=== PATIENT | female | born 1975 | race American Indian/Alaskan Native ===

== ENCOUNTER 2017-04-30 11:54 | Emergency (ER) | payer OTHER ==
[2017-04-30 12:15] VITALS: BMI 30.4
--- NOTE | 2017-04-30 13:43 | C.PDOC ---
History Of Present Illness 42F c/o right flank pain for 3 days, constant at first now comes and goes, worse w eating. feels similar to bout of pancreatitis 3 years ago, she says due to etoh. she still drinks daily, "6-pack." no etoh since pain started. denies other pmh or psh. Time Seen by Provider: 04/30/17 13:38 Chief Complaint (Nursing): Abdominal Pain Past Medical History Vital Signs: Last Vital Signs Temp 98.1 F 04/30/17 16:21 Pulse 77 04/30/17 18:05 Resp 18 04/30/17 18:05 BP 113/79 04/30/17 18:05 Pulse Ox 98 04/30/17 18:05 - Medical History PMH: HTN, Pancreatitis (2011) Family History: States: Other Other Family History: nc - Social History Hx Alcohol Use: Yes Hx Substance Use: No - Immunization History Hx Tetanus Toxoid Vaccination: No Hx Influenza Vaccination: No Hx Pneumococcal Vaccination: No Review Of Systems Except As Marked, All Systems Reviewed And Found Negative. Constitutional: Negative for: Fever, Chills, Weakness Cardiovascular: Negative for: Chest Pain Respiratory: Negative for: Cough, Shortness of Breath Gastrointestinal: Positive for: Abdominal Pain. Negative for: Nausea, Vomiting , Diarrhea Genitourinary: Negative for: Dysuria, Frequency Neurological: Negative for: Weakness, Numbness, Headache Physical Exam - Physical Exam Appears: Well, Non-toxic, No Acute Distress Skin: Warm, Dry Head: Atraumatic Eye(s): bilateral: PERRL Nose: No Epistaxis Oral Mucosa: Moist Lips: No Swelling Cardiovascular: Rhythm Regular Respiratory: No Decreased Breath Sounds, No Accessory Muscle Use, No Rales, No Rhonchi, No Stridor, No Wheezing Gastrointestinal/Abdominal: Soft, Tenderness (epigastric and RUQ), No Distention , No Guarding, No Rebound Back: No CVA Tenderness Extremity: No Swelling Neurological/Psych: Oriented x3, Other (no focal deficits) ED Course And Treatment - Laboratory Results Result Diagrams: 04/30/17 14:15 04/30/17 14:15 O2 Sat by Pulse Oximetry: 100 Medical Decision Making Medical Decision Making: the pt appears well. sitting up in bed, no distress. she is tolerating po without nausea or vomiting. disc results w her including mild lipase elevation, plan for rx, f/u, rtr. Disposition - Disposition Referrals: [facility] [Outside] Disposition: HOME/ ROUTINE Disposition Time: 17:24 Condition: GOOD Additional Instructions: Please follow up with a primary doctor. Return to the ER for any worsening symptoms, fever, repeated vomiting, or for any other concerns. Prescriptions: Cephalexin [Keflex] 500 mg PO BID #20 capsule Naproxen [Naprosyn] 500 mg PO Q12H PRN #10 tablet PRN Reason: Pain, Moderate (4-7) Instructions: Urinary Tract Infection in Women (ED) Forms: General Discharge Instructions - Clinical Impression Clinical Impression: UTI (urinary tract infection)
[2017-04-30] MEDS ORDERED: Sodium Chloride 0.9% 1,000 ML IV ONE (13:48)
[2017-04-30] MEDS ORDERED: Sodium Chloride 0.9% 1,000 ML ONE (14:17)
[2017-04-30 14:19] LABS: BASO % 0.6 % (0.0-2.0); EOS % 0.6 % (0.0-4.0); HEMOGLOBIN 16.7 g/dL (11.0-16.0); LYMPH # 1.5 K/uL (1.0-4.3); LYMPH % 21.6 % (20.0-40.0); MEAN CELL VOLUME 95.7 fL (81.0-99.0); MEAN CORPUSCULAR HEMOGLOBIN 32.3 pg (27.0-31.0); MEAN CORPUSCULAR HGB CONC 33.8 g/dL (33.0-37.0); MEAN PLATELET VOLUME 8.4 fL (7.2-11.7); MONO # 0.6 K/uL (0.0-0.8); MONO % 8.9 % (0.0-10.0); NEUT # 4.7 K/uL (1.8-7.0); NEUT % 68.3 % (50.0-75.0); NRBC % 0.1 % (0.0-2.0); RBC 5.17 Mil/uL (3.80-5.20); RED CELL DISTRIBUTION WIDTH 13.1 % (11.5-14.5); WHITE BLOOD COUNT 6.9 K/uL (4.8-10.8)
[2017-04-30 14:28] LABS: ALBUMIN 4.2 g/dL (3.5-5.0)
[2017-04-30 14:30] LABS: GFR AFRICAN-AMERICAN > 60; GFR NON-AFRICAN AMERICAN > 60; SQUAMOUS EPITHIAL 49 /hpf (0-5); URINE BILIRUBIN 1+ (NEGATIVE); URINE BLOOD 2+ (NEGATIVE); URINE CLARITY Hazy (Clear); URINE COLOR Amber (YELLOW); URINE GLUCOSE (UA) NORMAL (Normal); URINE LEUKOCYTE ESTERASE 3+ Leu/uL (Negative); URINE NITRATE NEGATIVE (NEGATIVE); URINE PROTEIN 2+ mg/dL (NEGATIVE)
[2017-04-30 14:31] LABS: ALT/SGPT 35 U/L (9-52); AST/SGOT 37 U/L (14-36); BLOOD UREA NITROGEN 16 mg/dL (7-17)
[2017-04-30 14:32] LABS: CALCIUM 9.5 mg/dl (8.6-10.4); LIPASE 497 U/L (23-300)
[2017-04-30] MEDS ORDERED: Sodium Chloride 0.9% 0 ML ONE (16:17)
[2017-04-30 16:22] VITALS: RESP 18; TEMP 98.1
--- NOTE | 2017-04-30 17:11 | CT ---
PROCEDURE: CT Abdomen and Pelvis without intravenous contrast HISTORY: Abdominal pain, right lower quadrant pain. By history, negative test (concurrent with this examination). COMPARISON: None. TECHNIQUE: Technique. Contrast Dose: Radiation dose: Total exam DLP = mGy-cm. This CT exam was performed using one or more of the following dose reduction techniques: Automated exposure control, adjustment of the mA and/or kV according to patient size, and/or use of iterative reconstruction technique. FINDINGS: LOWER THORAX: Unremarkable. LIVER: Unremarkable. No gross lesion or ductal dilatation. GALLBLADDER AND BILE DUCTS: Unremarkable. PANCREAS: Unremarkable. No gross lesion or ductal dilatation. SPLEEN: Unremarkable. ADRENALS: Unremarkable. No mass. KIDNEYS AND URETERS: Unremarkable. No hydronephrosis. No solid mass. VASCULATURE: Unremarkable. No aortic aneurysm. BOWEL: Unremarkable. No obstruction. No gross mural thickening. APPENDIX: Unremarkable. Normal appendix. PERITONEUM: Unremarkable. No free fluid. No free air. LYMPH NODES: Unremarkable. No enlarged lymph nodes. BLADDER: Unremarkable. REPRODUCTIVE: Unremarkable. BONES: No acute fracture. OTHER FINDINGS: None. IMPRESSION: No significant or acute findings to account for/ related to the clinical presentation.
[2017-04-30] MEDS ORDERED: cefTRIAXone IV 1 gm in Dextros 50 ML IVPB ONE (17:40)
[2017-04-30 18:06] VITALS: BP 113/79; PULSE 77
[2017-05-03 17:53] VITALS: O2SAT 100
== END 2017-04-30 18:06 | disposition home or self-care (01) ==
LOC: C.ER 11:54
DX: N39.0 Urinary tract infection, site not specified (principal)
CPT/HCPCS: 74176; 80053; 81001; 83690; 85025; 87086; 87181; 96361; 96365; 96375; 99285; J0696; J1885; J2270; J7040

== ENCOUNTER 2018-01-29 23:27 | Inpatient (IN) | payer BC, OTHER ==
[2018-01-29 23:27] VITALS: BMI 26.8
[2018-01-30] MEDS ORDERED: Sodium Chloride 0.9% 1,000 ML IV ONE (00:43)
--- NOTE | 2018-01-30 00:43 | C.PDOC ---
History Of Present Illness 43 year old female presents to the ED c/o abdominal pain. Patient reports her RUQ pain started 2 days ago and yesterday she developed nausea and vomiting. Patient denies fever, chills, CP, SOB, diarrhea, back pain. Time Seen by Provider: 01/30/18 00:42 Chief Complaint (Nursing): Abdominal Pain History Per: Patient History/Exam Limitations: no limitations Onset/Duration Of Symptoms: Days Current Symptoms Are (Timing): Still Present Context: Other Severity: Moderate Pain Scale Rating Of: 5 Location Of Pain/Discomfort: RUQ, Epigastric Radiation Of Pain To:: None Quality Of Discomfort: Sharp, Burning, "Pain" Associated Symptoms: Nausea, Vomiting Exacerbating Factors: None Alleviating Factors: None Last Bowel Movement: Today Recent travel outside of the [place]: No Additional History Per: Patient Abnormal Vaginal Bleeding: No Past Medical History Reviewed: Historical Data, Nursing Documentation, Vital Signs Vital Signs: Last Vital Signs Temp 98.2 F 01/30/18 03:27 Pulse 80 01/30/18 04:20 Resp 15 01/30/18 04:20 BP 152/99 H 01/30/18 04:20 Pulse Ox 100 01/30/18 04:20 - Medical History PMH: HTN, Pancreatitis (2011) Denies: Chronic Kidney Disease Surgical History: No Surg Hx Family History: States: Unknown Family Hx - Social History Hx Alcohol Use: Yes Hx Substance Use: No - Immunization History Hx Tetanus Toxoid Vaccination: No Hx Influenza Vaccination: No Hx Pneumococcal Vaccination: No Review Of Systems Constitutional: Negative for: Fever, Chills Cardiovascular: Negative for: Chest Pain Respiratory: Negative for: Shortness of Breath Gastrointestinal: Positive for: Nausea, Vomiting, Abdominal Pain Musculoskeletal: Negative for: Back Pain Skin: Negative for: Rash Neurological: Negative for: Weakness Psych: Negative for: Anxiety Physical Exam - Physical Exam Appears: Non-toxic, Other (crying ) Skin: Warm, Dry Head: Normacephalic Eye(s): bilateral: Normal Inspection Nose: No Discharge Oral Mucosa: Moist Neck: Supple Chest: Symmetrical Cardiovascular: Rhythm Regular, No Murmur Respiratory: No Rales, No Rhonchi, No Wheezing Gastrointestinal/Abdominal: Soft, Tenderness (RUQ), No Guarding, No Rebound Back: No CVA Tenderness Extremity: Normal ROM Extremity: Bilateral: Atraumatic Pulses: Left Dorsalis Pedis: Normal, Right Dorsalis Pedis: Normal Neurological/Psych: Oriented x3 Gait: Steady ED Course And Treatment - Laboratory Results Result Diagrams: 01/30/18 01:16 O2 Sat by Pulse Oximetry: 97 (ON RA) Pulse Ox Interpretation: Normal - CT Scan/US CT abd/pelvis Other Rad Studies (CT/US): Read By Radiologist, Radiology Report Reviewed CT/US Interpretation: EXAM: CT Abdomen and Pelvis Without Intravenous Contrast. CLINICAL HISTORY: 43 years old, female; Pain; Abdominal pain; Patient HX: 04-30-17 images sent; Additional info: Abd. pain, elevated lipase. TECHNIQUE: Axial computed tomography images of the abdomen and pelvis without intravenous contrast. All CT. scans at this facility use one or more dose reduction techniques, viz.: automated exposure control;. ma/kV adjustment per patient size (including targeted exams where dose is matched to indication; i.e. head); or iterative reconstruction technique. Coronal and sagittal reformatted images were created and reviewed. COMPARISON: CT - ABD PELVIS W/O PO OR IV CONT 2017-04-30 16:57. FINDINGS: Lung bases: Unremarkable. No mass. No consolidation. ABDOMEN: Liver: Unremarkable. Gallbladder and bile ducts: Unremarkable. No calcified stones. No ductal dilation. Pancreas: The body and tail of the pancreas are atrophic. The pancreatic head and uncinate. process appear prominent with minimal stranding of the peripancreatic fat. Spleen: Unremarkable. No splenomegaly. Adrenals: Unremarkable. No mass. Kidneys and ureters: Unremarkable. No obstructing stones. No hydronephrosis.Stomach and bowel: Unremarkable. No obstruction. No mucosal thickening. Appendix: A normal appendix is identified. PELVIS: Bladder: Unremarkable. No stones. Reproductive: Unremarkable as visualized. ABDOMEN and PELVIS: Intraperitoneal space: Unremarkable. No free air. No significant fluid collection. Bones/joints : No acute fracture. No dislocation. Soft tissues: Unremarkable. Vasculature: There is a significant amount of atherosclerotic calcification of the abdominal aorta,. advanced for the patient's age. This results in marked narrowing of the proximal and distal aorta,. unchanged. No abdominal aortic aneurysm. Lymph nodes: Unremarkable. No enlarged lymph nodes. IMPRESSION: Prominent pancreatic head and uncinate process with minimal stranding of the peripancreatic fat,. possible acute pancreatitis. However, findings are similar compared to the prior study. Clinical. correlation recommended. Marked atherosclerotic calcification of the aorta resulting in significant stenosis, advanced for the. patient's age. Stable finding compared to the prior study. Thank you for allowing us to participate in the care of your patient. Dictated and Authenticated by: Roslyn Pires MD Progress Note: Plan: - Labs. - Morphine 2 mg IVP. - Pepcid 20 mg IVP. - Zofran 4 mg IVP. - IV fluids. - UA Disposition Discussed With Dr.: Cullen Barton Comment: accepted the pt on his service and took over the care at 4:46AM Doctor Will See Patient In The: Hospital Counseled Patient/Family Regarding: Studies Performed, Diagnosis - Disposition Referrals: Cullen Barton MD [Primary Care Provider] - Disposition: HOSPITALIZED Disposition Time: 00:43 Condition: FAIR Forms: [facility] ([place]) - POA Present On Arrival: Poor Glycemic Control - Clinical Impression Clinical Impression: Abdominal pain, Acute pancreatitis - Scribe Statement The provider has reviewed the documentation as recorded by the Scribe Meng Lynn All medical record entries made by the Scribe were at my direction and personally dictated by me. I have reviewed the chart and agree that the record accurately reflects my personal performance of the history, physical exam, medical decision making, and the department course for this patient. I have also personally directed, reviewed, and agree with the discharge instructions and disposition. Decision To Admit - Pt Status Changed To: Hospital Disposition Of: Inpatient - Admit Certification Admit to Inpatient:: After my assessment, the patient will require hospitalization for at least two midnights. This is because of the severity of symptoms shown, intensity of services needed, and/or the medical risk in this patient being treated as an outpatient. - InPatient: Physician Admission Certification:: After my assessment, the patient will require hospitalization for at least two midnights. This is because of the severity of symptoms shown, intensity of services needed, and/or the medical risk in this patient being treated as an outpatient. - . Bed Request Type: Regular Admitting Physician: Cullen Barton Patient Diagnosis: Abdominal pain, Acute pancreatitis
[2018-01-30] MEDS ORDERED: Sodium Chloride 0.9% 1,000 ML ONE (01:14)
[2018-01-30] MEDS ORDERED: Morphine 4 MG/ML VIAL ONE ×2 (01:14→03:19)
[2018-01-30 01:36] LABS: ALBUMIN 4.1 g/dL (3.5-5.0); ALT/SGPT 30 U/L (9-52); AST/SGOT 29 U/L (14-36); BLOOD UREA NITROGEN 12 mg/dL (7-17); CALCIUM 9.8 mg/dl (8.6-10.4); GFR AFRICAN-AMERICAN > 60; GFR NON-AFRICAN AMERICAN > 60; LIPASE 804 U/L (23-300)
[2018-01-30] MEDS ORDERED: Iohexol 240 (50 ml) ONE (01:59)
[2018-01-30] MEDS ORDERED: Iohexol 240 (50 ml) PO ONE (02:01)
[2018-01-30 02:17] LABS: HCG,QUALITATIVE URINE NEGATIVE (NEGATIVE)
[2018-01-30 03:11] LABS: PROTHROMBIN TIME 10.8 SECONDS (9.7-12.2)
[2018-01-30] MEDS ORDERED: Morphine 4 MG/ML VIAL IV ONE (03:28)
--- NOTE | 2018-01-30 04:13 | CT ---
EXAM: CT Abdomen and Pelvis Without Intravenous Contrast CLINICAL HISTORY: 43 years old, female; Pain; Abdominal pain; Patient HX: 04-30-17 images sent; Additional info: Abd pain, elevated lipase TECHNIQUE: Axial computed tomography images of the abdomen and pelvis without intravenous contrast. All CT scans at this facility use one or more dose reduction techniques, viz.: automated exposure control; ma/kV adjustment per patient size (including targeted exams where dose is matched to indication; i.e. head); or iterative reconstruction technique. Coronal and sagittal reformatted images were created and reviewed. COMPARISON: CT - ABD PELVIS W/O PO OR IV CONT 2017-04-30 16:57 FINDINGS: Lung bases: Unremarkable. No mass. No consolidation. ABDOMEN: Liver: Unremarkable. Gallbladder and bile ducts: Unremarkable. No calcified stones. No ductal dilation. Pancreas: The body and tail of the pancreas are atrophic. The pancreatic head and uncinate process appear prominent with minimal stranding of the peripancreatic fat. Spleen: Unremarkable. No splenomegaly. Adrenals: Unremarkable. No mass. Kidneys and ureters: Unremarkable. No obstructing stones. No hydronephrosis. Stomach and bowel: Unremarkable. No obstruction. No mucosal thickening. Appendix: A normal appendix is identified. PELVIS: Bladder: Unremarkable. No stones. Reproductive: Unremarkable as visualized. ABDOMEN and PELVIS: Intraperitoneal space: Unremarkable. No free air. No significant fluid collection. Bones/joints: No acute fracture. No dislocation. Soft tissues: Unremarkable. Vasculature: There is a significant amount of atherosclerotic calcification of the abdominal aorta, advanced for the patient's age. This results in marked narrowing of the proximal and distal aorta, unchanged. No abdominal aortic aneurysm. Lymph nodes: Unremarkable. No enlarged lymph nodes. IMPRESSION: Prominent pancreatic head and uncinate process with minimal stranding of the peripancreatic fat, possible acute pancreatitis. However, findings are similar compared to the prior study. Clinical correlation recommended. Marked atherosclerotic calcification of the aorta resulting in significant stenosis, advanced for the patient's age. Stable finding compared to the prior study.
[2018-01-30 07:22] LABS: BASO % 0.4 % (0.0-2.0); EOS % 0.3 % (0.0-4.0); HEMOGLOBIN 17.1 g/dL (11.0-16.0); LYMPH # 1.2 K/uL (1.0-4.3); LYMPH % 17.1 % (20.0-40.0); MEAN CELL VOLUME 95.2 fL (81.0-99.0); MEAN CORPUSCULAR HEMOGLOBIN 33.1 pg (27.0-31.0); MEAN CORPUSCULAR HGB CONC 34.7 g/dL (33.0-37.0); MEAN PLATELET VOLUME 8.9 fL (7.2-11.7); MONO # 0.5 K/uL (0.0-0.8); NEUT # 5.1 K/uL (1.8-7.0); NEUT % 74.2 % (50.0-75.0); NRBC % 0.2 % (0.0-2.0); RBC 5.16 Mil/uL (3.80-5.20); WHITE BLOOD COUNT 6.8 K/uL (4.8-10.8)
[2018-01-30] MEDS ORDERED: HYDROmorphone 1 mg/ml ISec IVP PRN (07:38)
--- NOTE | 2018-01-30 07:40 | CP.PCM.PN ---
Subjective - Date & Time of Evaluation Date of Evaluation: 01/30/18 Time of Evaluation: 07:36 - Subjective Subjective: PGY-[address] Barton's Service: Pt seen and examined at bedside. Nursing reports no acute events overnight. Patient reports mild RUQ pain she describes as 4/10 burning pain that radiates to her back. Denies N/V this AM. States she can "stop alcohol anytime she likes " and does not want to stop drinking at this time. She denies formication, tremors, or palpitations. Patient is a 43 year old female with PMHx of IGT, Pancreatitis, who presented to [facility] on 01/29/18 for abdominal pain. Patient states pain started 3 days earlier and was associated with nausea/vomiting. Patient admits one prior episode of pancreatitis in [address] [facility]. Admits 15 year history of drinking alcohol daily. Typical use of "one 6 pack of beer daily." Last use was 01/28/18. Admits only one month of sobriety in 2011 after her last bout of pancreatitis. Denies having DT's at that time. Objective - Vital Signs/Intake and Output Vital Signs (last 24 hours): Temp Pulse Resp BP Pulse Ox 98 F 73 20 154/89 H 97 01/30/18 06:35 01/30/18 06:35 01/30/18 06:35 01/30/18 06:35 01/30/18 06:35 - Medications Medications: Current Medications Lactated Ringer's (Lactated Ringer's) 1,000 mls @ 150 mls/hr IV .[id number] JESSICA Pneumococcal Polyvalent Vaccine (Pneumovax 23 Vaccine) 0.5 ml IM .ONCE ONE Stop: 02/01/18 10:01 - Labs Labs: 01/30/18 01:16 PT 10.8 SECONDS (9.7-12.2) 01/30/18 01:16 INR 1.0 01/30/18 01:16 APTT 26 SECONDS (21-34) 01/30/18 01:16 - Constitutional Appears: Non-toxic, No Acute Distress - Head Exam Head Exam: ATRAUMATIC, NORMAL INSPECTION - Eye Exam Eye Exam: EOMI. absent: Scleral icterus - ENT Exam ENT Exam: Mucous Membranes Moist - Respiratory Exam Respiratory Exam: Clear to Ausculation Bilateral, NORMAL BREATHING PATTERN - Cardiovascular Exam Cardiovascular Exam: REGULAR RHYTHM, +S1, +S2 - GI/Abdominal Exam GI & Abdominal Exam: Soft, Tenderness (RUQ), Normal Bowel Sounds. absent: Firm , Guarding - Extremities Exam Extremities Exam: Normal Inspection. absent: Pedal Edema - Back Exam Back Exam: absent: CVA tenderness (L), CVA tenderness (R) - Neurological Exam Neurological Exam: Alert, Awake, Oriented x3 - Psychiatric Exam Psychiatric exam: Normal Affect, Normal Mood - Skin Skin Exam: Normal Color, Warm Assessment and Plan - Assessment and Plan (Free Text) Plan: Pancreatitis, Acute Admit to med/surg Pt with 2 prior episodes Etiology: Alcohol CT A/P (01/29/18): Prominent pancreatic head and uncinate process with minimal stranding of the peripancreatic fat, possible acute pancreatitis. However, findings are similar compared to the prior study. Clinical correlation recommended. Marked atherosclerotic calcification of the aorta resulting in significant stenosis, advanced for the patient's age. (see report) Lipase 804 Morphine 2mg IV Q6H PRN for pain Zofran Q6h PRN for nausea Reglan 5mg IV Q6H JESSICA LR @ 150cc/hr HTN Denies home meds Mildly elevated at admission Monitor Hx of IGT patient reports being told she is "pre-diabetic" Denies history of medications Because NPO, accuchecks Q4H f/u A1C Left foot wound Patient seeing podiatry who does not come here Reports Clindamycin 300mg PO Q8H for last two days as home med Podiatry consult, Dr. Means - f/u reccs Start Clindamycin 600mg IV Q8H Alcohol use disorder, severe Admits 6 pack of beer daily Ativan 1mg Q4H PRN for withdrawal symptoms Denies desire for detox at this time Tobacco Abuse Disorder 1/2 - 1 pack per day Refusing patch at this time Prophylaxis Protonix 40mg IV Daily Lovenox 40mg SC daily SCDs All management per Dr. Barton
[2018-01-30] MEDS ORDERED: Dextrose 5%/0.45% NS 1,000 ML IV SCH (07:45)
[2018-01-30 08:34] LABS: URINE BILIRUBIN NEGATIVE (NEGATIVE); URINE CLARITY Hazy (Clear); URINE COLOR YELLOW (YELLOW); URINE GLUCOSE (UA) 3+ mg/dL (Normal)
[2018-01-30 08:35] LABS: SQUAMOUS EPITHIAL 2 /hpf (0-5); URINE BLOOD 1+ (NEGATIVE); URINE LEUKOCYTE ESTERASE 1+ Leu/uL (Negative); URINE PROTEIN NEGATIVE (NEGATIVE); URINE UROBILINOGEN Normal mg/dL (0.2-1.0)
[2018-01-30 08:36] LABS: URINE BACTERIA FEW (<OCC)
[2018-01-30] MEDS: Lactated Ringer's 1,000 ML IV SCH ×3 (08:43→21:32)
[2018-01-30] MEDS: Morphine 4 MG/ML VIAL IV PRN ×2 (08:48→16:27)
[2018-01-30] MEDS: Enoxaparin 40 mg Syringe SC SCH (10:51)
[2018-01-30] MEDS: Clindamycin 600mg/50ml NS 600 MG/50 ML BAG IVPB SCH (17:18)
[2018-01-31] MEDS: Clindamycin 600mg/50ml NS 600 MG/50 ML BAG IVPB SCH ×4 (00:45→17:32)
[2018-01-31] MEDS: Morphine 4 MG/ML VIAL IV PRN (00:45)
[2018-01-31] MEDS: Lactated Ringer's 1,000 ML IV SCH ×4 (04:30→23:05)
--- NOTE | 2018-01-31 05:58 | CON ---
DATE: 01/30/[address] May to Dr. Cullen Barton. I was called for GI consultation by the admitting MD. The patient is seen and fully examined on 01/30/2018 as requested by the admitting medical staff. The entire chart is reviewed, including but not limited to most recent labs and radiology study results, current and the previous medication list, current and the previous medical events, allergies to medication list, as well as all the available current and the previous medical records. Case discussed with the staff at length. HISTORY OF PRESENT ILLNESS: This is a 43-year-old female who was admitted to the hospital through the emergency room with a main complaint of severe crampy abdominal pain, persistent on and off. The patient is complaining of severe midepigastric abdominal pain as well as midline abdominal pain on and off with postprandial abdominal distention, nausea and dyspepsia, but no reported active bleeding. No reported chills or fever. Also she has had upper quadrant pain for over 3 to 4 days, prior to her admission. No chest pain, palpitations, actual shortness of breath. PAST MEDICAL HISTORY: Including; 1. Alcohol induced pancreatitis. 2. Peptic ulcer disease. 3. Hypertension. FAMILY HISTORY: Unknown. SOCIAL HISTORY: Positive for alcohol intake on and off, but no reported recent history of cigarette smoking. CURRENT MEDICATIONS: Medication list post admission is seen. ALLERGIES TO MEDICATION: UNCLEAR. After being admitted to the hospital, initial blood workup showed increased blood glucose level to 263 with increased lipase level to about 800. Abdominal and pelvic CAT scan is done, showed evidence of prominent pancreatic head, also possible mild acute pancreatitis. PHYSICAL EXAMINATION: GENERAL: A 43-year-old female, appear to be awake, alert and oriented, complaining of abdominal pain with periods of diarrhea since admission. VITAL SIGNS: Afebrile with pulse of 82, respiratory rate of 18 to 20, blood pressure of 144/92. HEENT: Showed pale, dry, mucous membranes mildly. Nonicteric sclerae. LYMPH NODES: No lymphadenitis or lymphadenopathy. LUNGS: Few scattered crepitation. Decreased air entry at bases slightly. HEART: Positive S1 and S2. ABDOMEN: Soft with mild generalized tenderness, but mainly in the midepigastric area, left upper quadrant area and mid abdominal line. No mass or organomegaly. No rebound tenderness or guarding. RECTAL EXAMINATION: Patient refused. EXTREMITIES: Without significant clubbing, cyanosis, or edema. NEUROLOGIC: No reported new neurological deficits, sensory or motor. IMPRESSION: 1. Re-exacerbation of peptic ulcer disease, to rule out gastric versus duodenal ulcer. 2. Acute pancreatitis, most likely alcohol induced. The possibility of hyperlipidemia induced recurrent acute pancreatitis also should be kept in mind. 3. Poorly controlled hypertension. 4. Hyperglycemia of unclear etiology. SUGGESTIONS: 1. Agree with your plan. 2. Keep n.p.o. until serum lipase, amylase level normal or near normal. 3. Proton pump inhibitors. 4. Reglan IV. 5. Rehydration. 6. Endoscopic evaluation of the upper GI tract to rule out possible gastric versus duodenal ulcer when the patient is more stable clinically. 7. Further recommendation to follow. Thank you for letting me participate in your patient's case management. Shana May MD
[2018-01-31 06:27] LABS: BASO % 0.3 % (0.0-2.0); EOS % 0.7 % (0.0-4.0); HEMOGLOBIN 14.7 g/dL (11.0-16.0); LYMPH # 1.6 K/uL (1.0-4.3); LYMPH % 28.3 % (20.0-40.0); MEAN CELL VOLUME 94.4 fL (81.0-99.0); MEAN CORPUSCULAR HEMOGLOBIN 32.4 pg (27.0-31.0); MEAN CORPUSCULAR HGB CONC 34.4 g/dL (33.0-37.0); MEAN PLATELET VOLUME 8.2 fL (7.2-11.7); MONO # 0.5 K/uL (0.0-0.8); MONO % 8.3 % (0.0-10.0); NEUT # 3.6 K/uL (1.8-7.0); NEUT % 62.4 % (50.0-75.0); NRBC % 0.1 % (0.0-2.0); RBC 4.54 Mil/uL (3.80-5.20); RED CELL DISTRIBUTION WIDTH 12.7 % (11.5-14.5); WHITE BLOOD COUNT 5.7 K/uL (4.8-10.8)
[2018-01-31 06:40] LABS: ALB/GLOB RATIO 0.9 (1.0-2.1); ALBUMIN 2.9 g/dL (3.5-5.0); ALT/SGPT 22 U/L (9-52); AMYLASE 135 U/L (30-110); AST/SGOT 18 U/L (14-36); BLOOD UREA NITROGEN 8 mg/dL (7-17); CALCIUM 8.8 mg/dl (8.6-10.4); GFR AFRICAN-AMERICAN > 60; GFR NON-AFRICAN AMERICAN > 60; LIPASE 475 U/L (23-300)
--- NOTE | 2018-01-31 06:49 | HP ---
HISTORY OF PRESENT ILLNESS: The patient is a 43-year-old female with alcoholism, also complaining abdominal pain, pancreatitis. The patient with a history of foot ulcer, prediabetic. PHYSICAL EXAMINATION: GENERAL: The patient is awake, alert, and oriented. VITAL SIGNS: Temperature 98, pulse 90. HEENT: Within normal limits. NECK: Supple and symmetrical. HEART: Regular. ABDOMEN: Soft with mid epigastric tenderness. EXTREMITIES: Ulcer at the heel of the left leg. IMPRESSION: Patient suffers from acute pancreatitis, ulcer on the heel. The patient in bedrest, IV fluids, antibiotics, supportive care. Cullen Barton MD
--- NOTE | 2018-01-31 08:07 | CP.PCM.PN ---
Subjective - Date & Time of Evaluation Date of Evaluation: 01/31/18 Time of Evaluation: 08:00 - Subjective Subjective: PGY-[address] Barton's Service: Pt seen and examined at bedside. Nursing reports no acute events overnight. Patient reports mild RUQ pain she describes as 4/10 burning pain that radiates to her back. Denies N/V this AM. She denies formication, tremors, or palpitations. She will be getting an endoscopy this morning and colonoscopy tomorrow. Objective - Vital Signs/Intake and Output Vital Signs (last 24 hours): Temp Pulse Resp BP Pulse Ox 98.1 F 72 20 123/77 98 01/31/18 00:00 01/31/18 06:00 01/31/18 06:00 01/31/18 06:00 01/31/18 06:00 Intake and Output: 01/31/18 01/31/18 06:59 18:59 Intake Total 2280 Balance 2280 - Medications Medications: Current Medications Enoxaparin Sodium (Lovenox) 40 mg SC DAILY [facility] Last Admin: 01/30/18 10:51 Dose: 40 mg Lactated Ringer's (Lactated Ringer's) 1,000 mls @ 150 mls/hr IV .Q6H40M JESSICA Last Admin: 01/31/18 04:30 Dose: 150 mls/hr Clindamycin Phosphate (Cleocin In Normal Saline) 600 mg in 50 mls @ 102 mls/hr IVPB Q8H JESSICA PRN Reason: Protocol Last Admin: 01/31/18 00:45 Dose: 102 mls/hr Magnesium Sulfate/Dextrose (Magnesium Sulfate 1 Gm/100 Ml D5w) 1 gm in 100 mls @ 300 mls/hr IVPB Q1 [facility] Stop: 01/31/18 10:19 Lorazepam (Ativan) 1 mg IVP Q4H PRN PRN Reason: Symptoms of alcohol withdrawl Metoclopramide HCl (Reglan) 5 mg IVP Q8 JESSICA Last Admin: 01/31/18 06:05 Dose: 5 mg Morphine Sulfate (Morphine) 2 mg IV Q6 PRN PRN Reason: Pain, moderate (4-7) Last Admin: 01/31/18 00:45 Dose: 2 mg Ondansetron HCl (Zofran Inj) 4 mg IVP Q6H PRN PRN Reason: Nausea/Vomiting Pantoprazole Sodium (Protonix Inj) 40 mg IVP DAILY [facility] Last Admin: 01/30/18 10:51 Dose: 40 mg Pneumococcal Polyvalent Vaccine (Pneumovax 23 Vaccine) 0.5 ml IM .ONCE ONE Stop: 02/01/18 10:01 - Labs Labs: 01/31/18 06:17 01/31/18 06:17 PT 10.8 SECONDS (9.7-12.2) 01/30/18 01:16 INR 1.0 01/30/18 01:16 APTT 26 SECONDS (21-34) 01/30/18 01:16 - Constitutional Appears: Non-toxic, No Acute Distress - Head Exam Head Exam: ATRAUMATIC, NORMAL INSPECTION - Eye Exam Eye Exam: EOMI Pupil Exam: NORMAL ACCOMODATION - ENT Exam ENT Exam: Mucous Membranes Moist - Respiratory Exam Respiratory Exam: Clear to Ausculation Bilateral, NORMAL BREATHING PATTERN. absent: Respiratory Distress - Cardiovascular Exam Cardiovascular Exam: REGULAR RHYTHM, +S1, +S2 - GI/Abdominal Exam GI & Abdominal Exam: Soft, Normal Bowel Sounds. absent: Distended, Firm, Guarding, Tenderness - Extremities Exam Extremities Exam: Normal Inspection - Back Exam Back Exam: NORMAL INSPECTION. absent: CVA tenderness (L), CVA tenderness (R), paraspinal tenderness - Neurological Exam Neurological Exam: Alert, Awake, CN II-XII Intact, Normal Gait, Oriented x3 - Psychiatric Exam Psychiatric exam: Normal Affect, Normal Mood - Skin Skin Exam: Dry, Normal Color, Warm Assessment and Plan - Assessment and Plan (Free Text) Assessment: Pancreatitis, Acute Admit to med/surg Pt with 2 prior episodes Etiology: Alcohol CT A/P (01/29/18): Prominent pancreatic head and uncinate process with minimal stranding of the peripancreatic fat, possible acute pancreatitis. However, findings are similar compared to the prior study. Clinical correlation recommended. Marked atherosclerotic calcification of the aorta resulting in significant stenosis, advanced for the patient's age. (see report) Lipase 804 on admission, improving Morphine 2mg IV Q6H PRN for pain Zofran Q6h PRN for nausea Reglan 5mg IV Q6H JESSICA LR @ 150cc/hr Gastritis with dudoenal erosions w/o bleeding Had endoscopy 01/31 and will be getting colonoscopy 02/01 Sucralfate 1gram PO QID for 8 weeks Reglan 10mg IVP Q6 HTN Denies home meds Mildly elevated at admission Monitor Hx of IGT patient reports being told she is "pre-diabetic" Denies history of medications Because NPO, accuchecks Q4H f/u A1C Left foot wound Patient seeing podiatry who does not come here Reports Clindamycin 300mg PO Q8H for last two days as home med Podiatry consult, Dr. Means - f/u reccs Start Clindamycin 600mg IV Q8H Alcohol use disorder, severe Admits 6 pack of beer daily Ativan 1mg Q4H PRN for withdrawal symptoms Denies desire for detox at this time Tobacco Abuse Disorder 1/2 - 1 pack per day Refusing patch at this time Prophylaxis Protonix 40mg IV Daily Lovenox 40mg SC daily SCDs All management per Dr. Barton
[2018-01-31] MEDS ORDERED: Magnesium Sulfate 1 gm in D5W 1 GM/100 ML BAG IVPB SCH (09:00)
[2018-01-31] MEDS ORDERED: Propofol 10 mg/ml Inj (20 ML) ONE (09:31)
[2018-01-31] MEDS ORDERED: Lactated Ringer's 1,000 ML IV ONE (10:00)
[2018-01-31] MEDS ORDERED: Peg-Electrolyte Oral Soln 4L (Golytely) PO ONE (11:00)
[2018-01-31] MEDS: Enoxaparin 40 mg Syringe SC SCH (11:01)
[2018-01-31] MEDS: Magnesium Sulfate 1 gm in D5W 1 GM/100 ML BAG IVPB SCH ×2 (12:06→14:18)
--- NOTE | 2018-01-31 13:29 | CP.PCM.CON ---
History of Present Illness - History of Present Illness History of Present Illness: Podiatry Consult Note- Dr. Milligan: This is a 43 yo female pt, seen at the bedside today for ulceration of L heel. Pt says that recently she had developed a "callus" to the bottom of her L heel. She says that she has seen two different podiatrists, recently visited Dr. Erick DPM and was advised to use Kerasal cream. Pt was recently seen at [facility] , for drainage abscess of the L heel. She was discharged home on po antibiotics with which she has been compliant. Pt admits to tenderness to the L heel, with increased pain on ambulation. Reports difficulty putting weight to the heel. Denies numbness or tingling. Pt reports that she is "pre-diabetic". Pt now admitted to [facility] for new-onset abdominal pain (possible pancreatitis). No other complaints today. PMH: HTN, pancreatitis (2011) ALL: latex, shellfish Review of Systems - Review of Systems Review of Systems: all systems reviewed and found neg outside hpi Past Patient History - Infectious Disease Hx of Infectious Diseases: None - Tetanus Immunizations Tetanus Immunization: Up to Date - Past Medical History & Family History Past Medical History?: Yes - Past Social History Smoking Status: Heavy Smoker > 10 Cigarettes Daily - CARDIAC Hx Cardiac Disorders: Yes Hx Hypertension: Yes - PULMONARY Hx Respiratory Disorders: No - NEUROLOGICAL Hx Neurological Disorder: No - HEENT Hx HEENT Problems: No - RENAL Hx Chronic Kidney Disease: No - ENDOCRINE/METABOLIC Hx Endocrine Disorders: No - HEMATOLOGICAL/ONCOLOGICAL Hx Blood Disorders: No - INTEGUMENTARY Hx Dermatological Problems: No - MUSCULOSKELETAL/RHEUMATOLOGICAL Hx Falls: No - GASTROINTESTINAL Hx Gastrointestinal Disorders: Yes Hx Pancreatitis: Yes (2011) - GENITOURINARY/GYNECOLOGICAL Hx Genitourinary Disorders: No - PSYCHIATRIC Hx Substance Use: No - SURGICAL HISTORY Hx Surgeries: No - ANESTHESIA Hx Anesthesia: No Hx Anesthesia Reactions: No Hx Malignant Hyperthermia: No Has any member of the family had a problem w/ anesthesia?: No Meds Allergies/Adverse Reactions: Allergies Allergy/AdvReac Type Severity Reaction Status Date / Time latex Allergy RASH Verified 01/29/18 23:38 shellfish derived Allergy SHORTNESS Verified 01/29/18 23:38 OF BREATH - Medications Medications: Current Medications Bisacodyl (Dulcolax) 10 mg PO ONCE ONE Stop: 01/31/18 17:01 Enoxaparin Sodium (Lovenox) 40 mg SC DAILY [facility] Last Admin: 01/31/18 11:01 Dose: Not Given Lactated Ringer's (Lactated Ringer's) 1,000 mls @ 150 mls/hr IV .Q6H40M [facility] Last Admin: 01/31/18 11:01 Dose: Not Given Clindamycin Phosphate (Cleocin In Normal Saline) 600 mg in 50 mls @ 102 mls/hr IVPB Q8H JESSICA PRN Reason: Protocol Last Admin: 01/31/18 11:20 Dose: 102 mls/hr Magnesium Sulfate/Dextrose (Magnesium Sulfate 1 Gm/100 Ml D5w) 1 gm in 100 mls @ 100 mls/hr IVPB Q1 [facility] Stop: 01/31/18 14:59 Last Admin: 01/31/18 12:06 Dose: 100 mls/hr Lorazepam (Ativan) 1 mg IVP Q4H PRN PRN Reason: Symptoms of alcohol withdrawl Metoclopramide HCl (Reglan) 10 mg IVP Q6H [facility] Last Admin: 01/31/18 11:01 Dose: Not Given Morphine Sulfate (Morphine) 2 mg IV Q6 PRN PRN Reason: Pain, moderate (4-7) Last Admin: 01/31/18 00:45 Dose: 2 mg Ondansetron HCl (Zofran Inj) 4 mg IVP Q6H PRN PRN Reason: Nausea/Vomiting Pantoprazole Sodium (Protonix Inj) 40 mg IVP DAILY [facility] Last Admin: 01/31/18 11:01 Dose: Not Given Pneumococcal Polyvalent Vaccine (Pneumovax 23 Vaccine) 0.5 ml IM .ONCE ONE Stop: 02/01/18 10:01 Sucralfate (Carafate Oral Susp) 1 gm PO QID [facility] Physical Exam - Constitutional Appears: Non-toxic, No Acute Distress - Extremities Exam Extremities exam: Positive for: calf tenderness Additional comments: L foot focused exam: VASC- pedal pulses are fully palpable, skin temp runs wnl, cap refill is brisk to all digits, mild edema is noted to post-lat foot NEURO- gross and protective pedal sensation are fully intact DERM- there is a superficial ulceration noted to plantar-lateral aspect of L heel measures 0.3x0.3x0.2cm, neg tracking, neg PTB, neg malodor, neg simón-wound erythema, scant serosanguinous drainage to bandage, neg drainage on compression , neg fluctuance MSK- tenderness appreciated to heel on palp of wound, MMT is 5/5 all directions - Neurological Exam Neurological exam: Alert, CN II-XII Intact, Oriented x3 - Psychiatric Exam Psychiatric exam: Normal Affect, Normal Mood Results - Vital Signs Recent Vital Signs: Last Vital Signs Temp 97.6 F 01/31/18 10:24 Pulse 66 01/31/18 10:54 Resp 17 01/31/18 10:54 BP 137/82 01/31/18 10:54 Pulse Ox 100 01/31/18 10:54 - Labs Result Diagrams: 01/31/18 06:17 01/31/18 06:17 Labs: Laboratory Results - last 24 hr 01/30/18 01/30/18 01/31/18 16:37 21:14 06:17 WBC 5.7 RBC 4.54 Hgb 14.7 D Hct 42.9 MCV 94.4 MCH 32.4 H MCHC 34.4 RDW 12.7 Plt Count 137 MPV 8.2 Neut % (Auto) 62.4 Lymph % (Auto) 28.3 [place] % (Auto) 8.3 Eos % (Auto) 0.7 Baso % (Auto) 0.3 Neut # (Auto) 3.6 Lymph # (Auto) 1.6 [place] # (Auto) 0.5 Eos # (Auto) 0.0 Baso # (Auto) 0.0 Sodium Potassium Chloride Carbon Dioxide Anion Gap BUN Creatinine Est GFR ( Amer) Est GFR (Non-Af Amer) POC Glucose (mg/dL) 185 H 154 H Random Glucose Hemoglobin A1c Calcium Phosphorus Magnesium Total Bilirubin AST ALT Alkaline Phosphatase Total Protein Albumin Globulin Albumin/Globulin Ratio Amylase Lipase 01/31/18 01/31/18 01/31/18 06:17 06:17 07:01 WBC RBC Hgb Hct MCV MCH MCHC RDW Plt Count MPV Neut % (Auto) Lymph % (Auto) [place] % (Auto) Eos % (Auto) Baso % (Auto) Neut # (Auto) Lymph # (Auto) [place] # (Auto) Eos # (Auto) Baso # (Auto) Sodium 133 Potassium 4.1 Chloride 97 L Carbon Dioxide 26 Anion Gap 15 BUN 8 Creatinine 0.7 Est GFR ( Amer) > 60 Est GFR (Non-Af Amer) > 60 POC Glucose (mg/dL) 136 H Random Glucose 145 H Hemoglobin A1c 8.7 H Calcium 8.8 Phosphorus 3.8 Magnesium 1.2 L Total Bilirubin 0.8 AST 18 ALT 22 Alkaline Phosphatase 58 Total Protein 6.0 L Albumin 2.9 L D Globulin 3.1 Albumin/Globulin Ratio 0.9 L Amylase 135 H Lipase 475 H 01/31/18 11:24 WBC RBC Hgb Hct MCV MCH MCHC RDW Plt Count MPV Neut % (Auto) Lymph % (Auto) [place] % (Auto) Eos % (Auto) Baso % (Auto) Neut # (Auto) Lymph # (Auto) [place] # (Auto) Eos # (Auto) Baso # (Auto) Sodium Potassium Chloride Carbon Dioxide Anion Gap BUN Creatinine Est GFR ( Amer) Est GFR (Non-Af Amer) POC Glucose (mg/dL) 135 H Random Glucose Hemoglobin A1c Calcium Phosphorus Magnesium Total Bilirubin AST ALT Alkaline Phosphatase Total Protein Albumin Globulin Albumin/Globulin Ratio Amylase Lipase Assessment & Plan - Assessment and Plan (Free Text) Assessment: 43 yo female pt with superficial ulceration L heel (improving) Plan: Pt S&E at bedside Plan discussed with Dr. Milligan Chart, labs and vitals reviewed: afebrile, no leukocytosis DSD applied to L foot L foot xray ordered sx shoe for ambulation stable, will follow
[2018-01-31] MEDS: Sucralfate 1 gm/10 ml Oral Susp UD PO SCH ×3 (14:17→22:22)
--- NOTE | 2018-01-31 16:57 | RAD ---
PROCEDURE: Left Foot Radiographs. HISTORY: heel wound COMPARISON: None. FINDINGS: BONES: Normal. No fracture. JOINTS: Normal. SOFT TISSUES: Heel superficial soft tissue changes compatible with a wound as clinical history states OTHER FINDINGS: None. IMPRESSION: No periosteal reaction or cortical destruction to suggest osteomyelitis.
[2018-01-31] MEDS ORDERED: Bisacodyl 5mg EC Tab PO ONE (17:00)
[2018-01-31] MEDS: (Novolog) Insulin Aspart, Recombinant 100 u/ml 10 ml vial SC SCH (22:09)
[2018-02-01] MEDS: Clindamycin 600mg/50ml NS 600 MG/50 ML BAG IVPB SCH ×2 (01:02→08:33)
[2018-02-01 01:40] VITALS: O2SAT 100
[2018-02-01] MEDS: Lactated Ringer's 1,000 ML IV SCH ×3 (04:15→14:59)
[2018-02-01] MEDS: Morphine 4 MG/ML VIAL IV PRN (04:22)
--- NOTE | 2018-02-01 07:56 | CP.PCM.PN ---
Subjective - Date & Time of Evaluation Date of Evaluation: 02/01/18 Time of Evaluation: 14:00 - Subjective Subjective: PGY 2 Med Note- Dr. Barton's service Patient seen and examined in no apparent acute distress. Patient had colonoscopy earlier in the day. Patient tolerating diet. Patient would like to go home. Patient denied nausea, vomiting, chest pain or palpitations at this time. Objective - Vital Signs/Intake and Output Vital Signs (last 24 hours): Temp Pulse Resp BP Pulse Ox 98.3 F 60 20 130/70 100 02/01/18 00:00 02/01/18 00:00 02/01/18 00:00 02/01/18 00:00 02/01/18 00:00 Intake and Output: 02/01/18 02/01/18 06:59 18:59 Intake Total 4200 Balance 4200 - Medications Medications: Current Medications Enoxaparin Sodium (Lovenox) 40 mg SC DAILY [facility] Last Admin: 01/31/18 11:01 Dose: Not Given Lactated Ringer's (Lactated Ringer's) 1,000 mls @ 150 mls/hr IV .Q6H40M [facility] Last Admin: 02/01/18 04:15 Dose: 150 mls/hr Clindamycin Phosphate (Cleocin In Normal Saline) 600 mg in 50 mls @ 102 mls/hr IVPB Q8H JESSICA PRN Reason: Protocol Last Admin: 02/01/18 01:02 Dose: 102 mls/hr Insulin Aspart (Novolog) 0 unit SC ACHS JESSICA PRN Reason: Protocol Last Admin: 01/31/18 22:09 Dose: Not Given Lactic Acid (Lac-Hydrin 12% Lotion (225 G)) 0 gm EXT DAILY [facility] Lorazepam (Ativan) 1 mg IVP Q4H PRN PRN Reason: Symptoms of alcohol withdrawl Metoclopramide HCl (Reglan) 10 mg IVP Q6H [facility] Last Admin: 02/01/18 04:42 Dose: 10 mg Morphine Sulfate (Morphine) 2 mg IV Q6 PRN PRN Reason: Pain, moderate (4-7) Last Admin: 02/01/18 04:22 Dose: 2 mg Ondansetron HCl (Zofran Inj) 4 mg IVP Q6H PRN PRN Reason: Nausea/Vomiting Pantoprazole Sodium (Protonix Inj) 40 mg IVP DAILY [facility] Last Admin: 01/31/18 11:01 Dose: Not Given Pneumococcal Polyvalent Vaccine (Pneumovax 23 Vaccine) 0.5 ml IM .ONCE ONE Stop: 02/01/18 10:01 Sucralfate (Carafate Oral Susp) 1 gm PO QID [facility] Last Admin: 01/31/18 22:22 Dose: 1 gm - Labs Labs: 01/31/18 06:17 01/31/18 06:17 PT 10.8 SECONDS (9.7-12.2) 01/30/18 01:16 INR 1.0 01/30/18 01:16 APTT 26 SECONDS (21-34) 01/30/18 01:16 - Constitutional Appears: Non-toxic, No Acute Distress - Head Exam Head Exam: ATRAUMATIC, NORMAL INSPECTION, NORMOCEPHALIC - Eye Exam Eye Exam: EOMI, Normal appearance, PERRL Pupil Exam: NORMAL ACCOMODATION - ENT Exam ENT Exam: Mucous Membranes Moist - Neck Exam Neck Exam: Full ROM - Respiratory Exam Respiratory Exam: NORMAL BREATHING PATTERN. absent: Wheezes - Cardiovascular Exam Cardiovascular Exam: +S1, +S2 - GI/Abdominal Exam GI & Abdominal Exam: Soft, Normal Bowel Sounds. absent: Guarding, Tenderness - Extremities Exam Extremities Exam: Full ROM, Normal Capillary Refill - Back Exam Back Exam: Full ROM, NORMAL INSPECTION - Neurological Exam Neurological Exam: Alert, Awake, Normal Gait, Oriented x3 - Psychiatric Exam Psychiatric exam: Normal Affect, Normal Mood - Skin Skin Exam: Dry, Normal Color, Warm Assessment and Plan - Assessment and Plan (Free Text) Assessment: Pancreatitis, Acute Admit to med/surg Patient with 2 prior episodes Etiology: Alcohol CT A/P (01/29/18): Prominent pancreatic head and uncinate process with minimal stranding of the peripancreatic fat, possible acute pancreatitis. However, findings are similar compared to the prior study. Clinical correlation recommended. Marked atherosclerotic calcification of the aorta resulting in significant stenosis, advanced for the patient's age. (see report) Lipase 804 on admission, improving Morphine 2mg IV Q6H PRN for pain Zofran Q6h PRN for nausea Reglan 5mg IV Q6H [facility] LR @ 150cc/hr Gastritis with dudoenal erosions w/o bleeding Had endoscopy 01/31 and will be getting colonoscopy today. Refer to complete report. Patient to follow up outpatient with Dr. Archuleta within the next 4 weeks. Sucralfate 1gram PO QID for 8 weeks Reglan 10mg IVP Q6 HTN Denies home meds Normotensive currently Monitor Diabetes Mellitus Patient reports being told she is "Pre-Diabetic" Denies history of medications A1C 8.7 Patient advised to speak with primary doctor upon discharge about medication management. Superficial ulceration of left heel Podiatry (Dr. Means) on board - F/U recommendations Clindamycin 600mg IV Q8H On Florastor Alcohol use disorder, severe Admits to drinking a 6 pack of beer daily Ativan 1mg Q4H PRN for withdrawal symptoms Is not interested in detox at this time Counseling Electrolyte abnormality Repleted Cont to monitor Tobacco Abuse Disorder 1/2 - 1 pack per day Refusing patch at this time Cessation counseling Prophylaxis Protonix 40mg IV Daily Lovenox 40mg SC daily SCDs DC Plan Patient is medically stable for discharge home. Patient to follow up with with primary medical doctor Mick within one week. patient to follow up with Dr. Archuleta within 4 weeks for follow up care Patient to resume home medications as indicated. Patient to use Anusol cream BID for a total of 8 weeks. Patient to avoid triggers of pancreatitis as discussed. If symptoms return, go to the emergency room. Instructions explained to patient who is aware. Discussed with attending. All management per Dr. Barton
[2018-02-01] MEDS: (Novolog) Insulin Aspart, Recombinant 100 u/ml 10 ml vial SC SCH ×2 (08:08→12:08)
[2018-02-01 08:09] LABS: ALB/GLOB RATIO 0.9 (1.0-2.1); ALBUMIN 2.7 g/dL (3.5-5.0); ALT/SGPT 27 U/L (9-52); AMYLASE 123 U/L (30-110); AST/SGOT 39 U/L (14-36); BLOOD UREA NITROGEN 4 mg/dL (7-17); CALCIUM 8.4 mg/dl (8.6-10.4); GFR AFRICAN-AMERICAN > 60; GFR NON-AFRICAN AMERICAN > 60; LIPASE 354 U/L (23-300)
[2018-02-01] MEDS: Enoxaparin 40 mg Syringe SC SCH (09:27)
[2018-02-01] MEDS: Sucralfate 1 gm/10 ml Oral Susp UD PO SCH ×2 (09:27→14:50)
[2018-02-01] MEDS ORDERED: Saccharomyces Boulardi 250 mg Cap PO SCH (10:00)
[2018-02-01] MEDS ORDERED: Ammonium Lactate 12% Lotion (225 g) EXT SCH (10:00)
[2018-02-01] MEDS ORDERED: Pneumococcal 23-Valent Vaccine IM ONE ×2 (10:00→17:00)
[2018-02-01] MEDS ORDERED: Magnesium Sulfate 1 gm in D5W 1 GM/100 ML BAG IVPB ONE (10:00)
--- NOTE | 2018-02-01 10:33 | CP.PCM.PN ---
Subjective - Date & Time of Evaluation Date of Evaluation: 02/01/18 Time of Evaluation: 14:30 - Subjective Subjective: Podiatry Progress Note- Dr. Milligan/Dr. Means 43 yo female pt seen today for ulceration L heel. Pt states she feels much better today and would like to go home. Has been walking with the surgical shoe , says foot pain is improved today. Objective - Vital Signs/Intake and Output Vital Signs (last 24 hours): Temp Pulse Resp BP Pulse Ox 98.3 F 60 20 130/70 100 02/01/18 00:00 02/01/18 00:00 02/01/18 00:00 02/01/18 00:00 02/01/18 00:00 Intake and Output: 02/01/18 02/01/18 06:59 18:59 Intake Total 4200 Balance 4200 - Medications Medications: Current Medications Enoxaparin Sodium (Lovenox) 40 mg SC DAILY [facility] Last Admin: 02/01/18 09:27 Dose: Not Given Lactated Ringer's (Lactated Ringer's) 1,000 mls @ 150 mls/hr IV .Q6H40M [facility] Last Admin: 02/01/18 04:15 Dose: 150 mls/hr Clindamycin Phosphate (Cleocin In Normal Saline) 600 mg in 50 mls @ 102 mls/hr IVPB Q8H JESSICA PRN Reason: Protocol Last Admin: 02/01/18 08:33 Dose: 102 mls/hr Insulin Aspart (Novolog) 0 unit SC ACHS JESSICA PRN Reason: Protocol Last Admin: 02/01/18 08:08 Dose: Not Given Lactic Acid (Lac-Hydrin 12% Lotion (225 G)) 0 gm EXT DAILY [facility] Last Admin: 02/01/18 09:27 Dose: Not Given Lorazepam (Ativan) 1 mg IVP Q4H PRN PRN Reason: Symptoms of alcohol withdrawl Metoclopramide HCl (Reglan) 10 mg IVP Q6H [facility] Last Admin: 02/01/18 09:28 Dose: Not Given Morphine Sulfate (Morphine) 2 mg IV Q6 PRN PRN Reason: Pain, moderate (4-7) Last Admin: 02/01/18 04:22 Dose: 2 mg Ondansetron HCl (Zofran Inj) 4 mg IVP Q6H PRN PRN Reason: Nausea/Vomiting Pantoprazole Sodium (Protonix Inj) 40 mg IVP DAILY [facility] Last Admin: 02/01/18 09:28 Dose: Not Given Saccharomyces Boulardii (Florastor) 250 mg PO BID [facility] Sucralfate (Carafate Oral Susp) 1 gm PO QID [facility] Last Admin: 02/01/18 09:27 Dose: Not Given - Labs Labs: 01/31/18 06:17 02/01/18 07:36 PT 10.8 SECONDS (9.7-12.2) 01/30/18 01:16 INR 1.0 01/30/18 01:16 APTT 26 SECONDS (21-34) 01/30/18 01:16 - Constitutional Appears: Non-toxic, No Acute Distress - Extremities Exam Extremities Exam: absent: Calf Tenderness Additional comments: left foot focused VASC- pedal pulses are fully palpable, skin temp runs wnl, cap refill is brisk to all digits, mild edema is noted to post-lat foot NEURO- gross and protective pedal sensation are fully intact DERM- ulceration of plantar-lateral heel appears closed today, no drainage, no erythema, no flucutance, neg malodor MSK- tenderness appreciated to lateral heel, MMT is 5/5 all directions - Neurological Exam Neurological Exam: Alert, Awake, Oriented x3 - Psychiatric Exam Psychiatric exam: Normal Affect, Normal Mood Assessment and Plan - Assessment and Plan (Free Text) Assessment: 43 yo female pt with superficial ulceration L heel (resolved) Plan: Pt S&E at bedside Plan discussed with Dr. Milligan (covering for Dr. Means) Chart, labs and vitals reviewed: afebrile, no leukocytosis optifoam applied to L foot, c/w sx shoe for wb L foot x-ray: no acute findings Podiatry to sign off pt is to f/u with Dr. Anglin, DPM Sunday
[2018-02-01] MEDS ORDERED: Lactated Ringer's 1,000 ML IV ONE (10:45)
[2018-02-01] MEDS ORDERED: Propofol 10 mg/ml Inj (20 ML) ONE (10:45)
[2018-02-01 11:19] VITALS: TEMP 97.8
[2018-02-01 11:44] VITALS: BP 157/80; PULSE 62; RESP 17
== END 2018-02-01 17:20 | disposition home or self-care (01) | DRG 439 ==
LOC: C.ER 23:27 → SUPCPDRO 23:27 → C.3T 01-30 04:45
PROVIDERS: ADMIT Internal Medicine Pulmonary Disease; ATTEND Internal Medicine Pulmonary Disease
PROC: 0DB68ZX Excision of Stomach, Via Natural or Artificial Opening Endoscopic, Diagnostic (ICD-10-PCS; principal; 2018-01-31 10:00)
PROC: 0D9N8ZX Drainage of Sigmoid Colon, Via Natural or Artificial Opening Endoscopic, Diagnostic (ICD-10-PCS; 2018-02-01)
DX: K85.90 Acute pancreatitis without necrosis or infection, unspecified (principal); L97.429 Non-pressure chronic ulcer of left heel and midfoot with unspecified severity; E11.621 Type 2 diabetes mellitus with foot ulcer; E11.65 Type 2 diabetes mellitus with hyperglycemia; I10 Essential (primary) hypertension; K29.70 Gastritis, unspecified, without bleeding; Z72.0 Tobacco use; K58.9 Irritable bowel syndrome, unspecified; K64.8 Other hemorrhoids; K64.4 Residual hemorrhoidal skin tags; K44.9 Diaphragmatic hernia without obstruction or gangrene